=== PATIENT | female | born 1980 | race Two or more races ===

== ENCOUNTER 2020-01-01 05:50 | Day surgery (SDC) | payer OTHER ==
[2020-01-01] MEDS ORDERED: NEXIUM 24HR20 MG PO (08:56)
[2020-01-01] MEDS ORDERED: CLARITHROMYCIN500 MG PO (08:57)
[2020-01-01] MEDS ORDERED: AMOXICILLIN500 M1 PO (08:58)
== END 2020-01-01 10:37 | disposition home or self-care (01) ==
LOC: AMB-ENDOS 05:50
PROVIDERS: ATTEND Surgery
DX: K29.50 Unspecified chronic gastritis without bleeding (principal); K44.9 Diaphragmatic hernia without obstruction or gangrene